=== PATIENT | female | born 1995 | race Caucasian/White ===

== ENCOUNTER 2019-01-26 01:13 | Emergency (ER) | payer OTHER ==
[~2019-01-26] VITALS: Ht 157.5 cm; Wt 94.0 kg
[2019-01-26 01:17] VITALS: BP 121/66; PULSE 96; RESP 18; Ht 157.5 cm; Wt 94.0 kg
[2019-01-26] MEDS ORDERED: IBUP-1561 PO (04:59)
--- NOTE | 2019-01-26 05:14 | ERD ---
ER Documentation Chief Complaint Chief Complaint swelling/bump/pain middle of chest x 1 week HPI This is a 23-year-old female presents to the ED complaining of an area of swelling to her mid chest x1 week. She reports this was a 5 out of 10 throbbing pain. She states she is unable to sleep at night due to the pain. She denies any breast tenderness or breast pain. Denies any breast discharge. Denies any fevers or chills. Denies any other complaints. No history of same. Her last menstrual cycle was 1 week ago. ROS All systems reviewed and are negative except as per history of present illness. Medications Home Meds Active Scripts Ibuprofen* (Motrin*) 400 Mg Tab, 400 MG PO Q6H PRN for PAIN AND OR ELEVATED TEMP, #30 TAB Prov:CRYSTAL HDZ PA-C 01/26/19 Allergies Allergies: Coded Allergies: No Known Drug Allergies (Verified Allergy, Unknown, 01/26/19) PMhx/Soc Medical and Surgical Hx: pt denies Medical Hx, pt denies Surgical Hx Hx Alcohol Use: No Hx Substance Use: No Hx Tobacco Use: No Smoking Status: Never smoker Physical Exam Vitals Vital Signs Date Temp Pulse Resp B/P (MAP) Pulse Ox O2 O2 Flow FiO2 Time Delivery Rate 01/26/19 99.4 96 18 121/66 100 01:17 (84) Physical Exam Const: No acute distress Head: Atraumatic Eyes: Normal Conjunctiva ENT: Normal External Ears, Nose and Mouth. Neck: Full range of motion. No meningismus. Resp: Clear to auscultation bilaterally Skin: + 1.5 cm mildly tender nodule to midchest. No induration, no fluctuance, no warmth. Neur: Awake and alert Psych: Normal Mood and Affect Procedures/MDM LABS & DIAGNOSTIC IMAGING: PROCEDURE: Ultrasound chest soft tissues CLINICAL INDICATION: painful "lump" to mid substernal chest between breasts TECHNIQUE: Sonographic imaging of the anterior chest soft tissues was performed at the site of concern. COMPARISON: None. FINDINGS: 1.2 x 1.0 x 1.5 cm subcutaneous fluid collection is present at the site of concern. IMPRESSION: 1. 1.2 x 1.0 x 1.5 cm subcutaneous fluid collection is present at the site of concern. 2. Abscess may be considered in the appropriate setting. Other cystic lesions such as sebaceous cyst may also be considered. MEDICAL DECISION MAKIN-year-old female presents with a painful small nodule to her mid chest. Ultrasound reveals a 1.5 cm subcutaneous fluid collection. There is no erythema, induration, or fluctuance to make me believe that this could be an abscess. It is likely that this is a sebaceous cyst. She has no fever here and vital signs are stable. I have low suspicion for cellulitis, osteomyelitis, or deep space tissue infection. I recommended warm compresses 4 times a day for 10 minutes at a time, along with ibuprofen for pain. 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 Strict return precautions were discussed. PRESCRIPTIONS: Ibuprofen SPECIALIST FOLLOW UP RECOMMENDED: None Patient has been advised to follow up with primary care in 1-2 days. Departure Diagnosis: Primary Impression: Sebaceous cyst Condition: Stable Patient Instructions: Sebaceous Cyst Referrals: [facility] YOU HAVE RECEIVED A MEDICAL SCREENING EXAM AND THE RESULTS INDICATE THAT YOU DO NOT HAVE A CONDITION THAT REQUIRES URGENT TREATMENT IN THE EMERGENCY DEPARTMENT. FURTHER EVALUATION AND TREATMENT OF YOUR CONDITION CAN WAIT UNTIL YOU ARE SEEN IN YOUR DOCTORS OFFICE WITHIN THE NEXT 1-2 DAYS. IT IS YOUR RESPONSIBILITY TO MAKE AN APPOINTMENT FOR [facility] CARE. IF YOU HAVE A PRIMARY DOCTOR --you should call your primary doctor and schedule an appointment IF YOU DO NOT HAVE A PRIMARY DOCTOR YOU CAN CALL OUR PHYSICIAN REFERRAL HOTLINE AT IF YOU CAN NOT AFFORD TO SEE A PHYSICIAN YOU CAN CHOSE FROM THE FOLLOWING [facility] CLINICS [facility] [address] [facility] [address] [facility] [address] [facility]. [facility] [address] [facility]. [facility] [address] [facility]. [facility]. [address] [facility]. [facility] YOU HAVE RECEIVED A MEDICAL SCREENING EXAM AND THE RESULTS INDICATE THAT YOU DO NOT HAVE A CONDITION THAT REQUIRES URGENT TREATMENT IN THE EMERGENCY DEPARTMENT. FURTHER EVALUATION AND TREATMENT OF YOUR CONDITION CAN WAIT UNTIL YOU ARE SEEN IN YOUR DOCTORS OFFICE WITHIN THE NEXT 1-2 DAYS. IT IS YOUR RESPONSIBILITY TO MAKE AN APPOINTMENT FOR [facility]OLOW-UP CARE. IF YOU HAVE A PRIMARY DOCTOR --you should call your primary doctor and schedule and appointment IF YOU DO NOT HAVE A PRIMARY DOCTOR YOU CAN CALL OUR PHYSICIAN REFERRAL HOTLINE AT . IF YOU CAN NOT AFFORD TO SEE A PHYSICIAN YOU CAN CHOSE FROM THE FOLLOWING [facility] INSTITUTIONS: [facility] [address] [place] [address] [facility] [address] [place] [address] [facility] + [facility] [address] [place] [address] [facility] URGENT CARE/SPECIALTIES Additional Instructions: Apply warm compresses to your chest for 10 minutes at least 4 times a day. Take the Motrin needed for any pain. If you start to develop worsening pain, fevers, chills, discharge, increasing redness or swelling, return here. Otherwise see her primary care provider sometime this week. CRYSTAL HDZ PA-C January 26, 2019 05:14
== END 2019-01-26 05:24 | disposition home or self-care (01) ==
LOC: FTE 01:13
DX: L72.3 Sebaceous cyst (principal)
CPT/HCPCS: 76536

== ENCOUNTER 2019-05-09 00:05 | Emergency (ER) | payer OTHER ==
[~2019-05-09] VITALS: Ht 158.8 cm; Wt 95.2 kg
[~2019-05-09 00:05] MED LIST: IBUP-1542 PO; IBUP-1561 PO; PHEN-538 PO; SULF1TAB31 PO
[2019-05-09 00:13] VITALS: BP 117/58; PULSE 78; RESP 17; Ht 158.8 cm; Wt 95.2 kg
[2019-05-09] MEDS ORDERED: PHENAZOPYRIDINE 100 MG TAB PO ONE (01:30)
[2019-05-09] MEDS ORDERED: IBUPROFEN 600 MG TAB PO ONE (02:30)
== END 2019-05-09 02:46 | disposition home or self-care (01) ==
LOC: FTE 00:05
DX: N30.01 Acute cystitis with hematuria (principal)
CPT/HCPCS: 81001; 81003; 81025; Z7502; Z7610; 99283